=== PATIENT | male | born 1940 | race Caucasian/White ===

== ENCOUNTER 2021-03-18 16:30 | Emergency (ER) | payer OTHER ==
[2021-03-18] MEDS ORDERED: Bacitracin 1 PK ONE (17:24)
== END 2021-03-18 18:03 | disposition home or self-care (01) ==
LOC: NAV ERS 16:30
DX: S22.32XA Fracture of one rib, left side, initial encounter for closed fracture (principal); S13.9XXA Sprain of joints and ligaments of unspecified parts of neck, initial encounter; S50.12XA Contusion of left forearm, initial encounter; R60.0 Localized edema; E78.5 Hyperlipidemia, unspecified; I10 Essential (primary) hypertension; Z79.899 Other long term (current) drug therapy; V44.5XXA Car driver injured in collision with heavy transport vehicle or bus in traffic accident, initial encounter
CPT/HCPCS: 72125

== ENCOUNTER 2023-04-16 18:20 | Emergency (ER) | payer MEDICARE ==
[2023-04-16] MEDS ORDERED: Bacitracin 1 PK ONE (18:50)
[2023-04-16] MEDS ORDERED: Boostrix 0.5 ML (Tdap) VIAL (>/=7 yrs of age) ONE (18:51)
[2023-04-17] MEDS ORDERED: EPINEPHrine 1 MG/10 ML Abboject SYRINGE ONE (01:20)
== END 2023-04-16 20:25 | disposition home or self-care (01) ==
LOC: NAV ERS 18:20
DX: S51.012A Laceration without foreign body of left elbow, initial encounter (principal); S00.83XA Contusion of other part of head, initial encounter; E78.5 Hyperlipidemia, unspecified; I10 Essential (primary) hypertension; Z23 Encounter for immunization; Z79.899 Other long term (current) drug therapy; W18.39XA Other fall on same level, initial encounter
CPT/HCPCS: 70450; 72125; 90471; 90715

== ENCOUNTER 2024-12-28 10:04 | Emergency (ER) | payer MEDICARE ==
[2024-12-28] MEDS ORDERED: Azithromycin 250 MG TAB ONE (11:17)
== END 2024-12-28 11:20 | disposition home or self-care (01) ==
LOC: NAV ERS 10:04
DX: J18.9 Pneumonia, unspecified organism (principal); I10 Essential (primary) hypertension; E78.5 Hyperlipidemia, unspecified; Z79.899 Other long term (current) drug therapy
CPT/HCPCS: 71046

== ENCOUNTER 2025-02-18 12:04 | Outpatient (CLI) | payer MEDICARE | END 2025-02-18 12:05 | disposition home or self-care (01) | LOC: NAV CT 12:04 | PROVIDERS: ATTEND Internal Medicine | DX: R91.1 Solitary pulmonary nodule (principal) | CPT/HCPCS: 71250 ==